=== PATIENT | male | born 1995 | race Hispanic/Latino ===

== ENCOUNTER 2022-02-18 07:46 | Emergency (ER) | payer SELFPAY ==
[2022-02-18] MEDS ORDERED: Ketorolac Tromethamine 60 MG/2 ML VIAL ONE (08:41)
== END 2022-02-18 08:55 | disposition home or self-care (01) ==
LOC: NAV ERS 07:46
DX: B02.9 Zoster without complications (principal); F17.210 Nicotine dependence, cigarettes, uncomplicated
CPT/HCPCS: 96372; 99282; J1885